=== PATIENT | female | born 1945 | race Caucasian/White ===

== ENCOUNTER 2017-06-16 07:11 | Day surgery (SDC) | payer MEDICARE, MEDICAID ==
[2017-06-16 08:22] VITALS: BP 131/43; TEMP 98.2; BMI 44.3
[2017-06-16] MEDS ORDERED: FLU VACC TS2017-18 (>65YR) 0.5 ML SYRINGE IM ONE (08:30)
--- NOTE | 2017-06-16 10:09 | CT ---
CT CERVICAL MYELOGRAM: Date: 06/16/17 INDICATION: Disc degenerative disease of the cervical spine. TECHNIQUE: Multiple CT images were obtained of the cervical spine following the intrathecal administration of I sovue contrast solution. Please see the separately dictated myelogram for details concerning injecti on technique. FINDINGS: There is postsurgical change of an ACDF spanning C6-C7. There is solid osseous incorporation with fi bular strut graft. The plate and screw construct fixating C6-C7 projects in the expected position. Visualized mastoid air cells are clear. The craniocervical junction demonstrates some mild degenerat gabriela change, but is otherwise without acute abnormality. At C2-C3, there is moderate right and mild left facet joint degenerative change. There is mild left uncovertebral hypertrophy. There is no appreciable central canal or neural foraminal narrowing. At C3-4, there is severe right and moderate left facet joint degenerative change. There is mild unco vertebral hypertrophy. There is no appreciable central canal or neural foraminal narrowing. At C4-5, there is moderate bilateral facet joint degenerative change. There is no appreciable centra l canal narrowing. There is a mild central protrusion causing mild effacement of the ventral subarac hnoid space. At C5-6, there is a broad based disc bulge with uncovertebral hypertrophy and facet joint degenerati ve change causing mild effacement of the ventral subarachnoid space and ventral spinal cord. No neur al foraminal narrowing is evident. At C6-7, there is some broad based osteophyte complex. There is no appreciable osseous central canal or neural foraminal narrowing. At C7-T1, there is no central canal or neural foraminal narrowing. At T1-T2, there is no appreciable central canal or neural foraminal narrowing. At T2-T3, there is no appreciable central canal or neural foraminal narrowing. Lung apices are clear. IMPRESSION: 1. Multilevel spondylosis of the cervical spine with mild central canal narrowing seen at C4-5 and C5-6. At C5-6, there is mild ventral effacement also with the spinal cord. 2. C6-C7 anterior cervical disc fusion with solid incorporation of the fibular strut graft. POS: [facility]
--- NOTE | 2017-06-16 10:14 | CT ---
CT THORACIC SPINE MYELOGRAM: Date: 06/16/17 INDICATION: Disc degenerative disease of the thoracic spine. TECHNIQUE: Multiple CT images were obtained of the thoracic spine after intrathecal administration of Isovue co ntrast solution. Please see the myelogram for details concerning the injection technique. FINDINGS: There are multilevel changes of disc degenerative disease of the thoracic spine. There is anterior f lowing disc osteophytes at T7 through T10. There is a small central protrusion at T6-T7 causing mild ventral effacement of the thoracic spinal cord. There is an additional small central protrusion at T7-T8 with mild effacement of the ventral subarac hnoid space. At T8-T9, there is a right paracentral protrusion mildly effacing the ventral subarachnoid space. A very tiny central protrusion is seen at T4-5. The remaining thoracic spinal levels demonstrate no appreciable central canal or neural foraminal na rrowing. There is an ACDF seen at C6-7 with solid osseous incorporation of the bone graft. Visualized lungs are clear. Visualized retroperitoneum appear within normal limits. There are some s hotty appearing lymph nodes seen within the gastrohepatic region. IMPRESSION: 1. Multilevel spondylosis of the thoracic spine. 2. Prominent central disc protrusion at T6-T7 causing mild effacement of the ventral spinal cord. 3. Small protrusion seen at T4-T5, T7-T8, and T8-T9. POS: [facility]
--- NOTE | 2017-06-16 11:04 | CT ---
CT LUMBAR SPINE MYELOGRAM: Date: 06/16/17 INDICATION: Disc degenerative disease of the lumbar spine. TECHNIQUE: Multiple CT images were obtained of the lumbar spine following the intrathecal administration of an Isovue contrast solution. Please see the separately dictated lumbar myelogram for details concerning the injection technique. FINDINGS: There are five lumbar-type vertebrae. The conus is seen to terminate at approximately L1. Visualized retroperitoneum demonstrates moderate calcification of the abdominal aorta. There is a retroaortic left renal vein. There are shotty appearing lymph nodes seen within the upper abdomen near the gastr ohepatic ligament. There is diffuse osteopenia. There is moderate degenerative change of the left SI joint and mild degenerative change of the right SI joint. There is postsurgical change of a left hemilaminectomy at L5. There is moderate left and mild right facet joint degenerative change at L5-S1. There is a broad based disc bulge. Constellation of findin gs induces mild to moderate bilateral neural foraminal narrowing. At L4-5, there is a broad based disc bulge with ligamentum flavum hypertrophy and mild facet joint d egenerative change inducing mild central canal narrowing with mild to moderate bilateral neural fora andrew narrowing. At L3-4, there is a broad based disc bulge with facet joint degenerative change likely inducing mild bilateral neural foraminal narrowing. At L2-3, there is a mild broad based disc bulge without appreciable central canal or neural foramina l narrowing. At L1-L2, there is no appreciable central canal or neural foraminal narrowing. IMPRESSION: 1. Mild disc degenerative disease of the lumbar spine most pronounced at L3-4 through L4-5 where th ere is bilateral neural foraminal narrowing. There is mild central canal narrowing at L4-5. 2. 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 POS: [facility]
--- NOTE | 2017-06-16 11:24 | RAD ---
MYELOGRAM INVOLVING 2 OR MORE REGIONS: Date: 06/16/17 INDICATION: Disc degenerative disease. TECHNIQUE: Informed consent was obtained. Preprocedure senior safety management consultant images were obtained of the cervical thoracic, and lumbar spine. The patient was placed prone on the fluoroscopy table. A timeout was performed. Site overlying the left L2-L3 interlaminar space was marked. The site was prepped and draped in the usual sterile fashion. Buffered 1% lidocaine was administered to the overlying subcutaneous tissues. Unde r fluoroscopic guidance, a 22 gauge spinal needle was guided down through the left L2-3 interlaminar space and into the thecal sac. With removal of the inner stylette, there was spontaneous return of normal appearing CSF fluid. Following this, 14 mL of Isovue-300M contrast was administered within th e thecal sac. During the fluoroscopic examination, there was visualization of intrathecal nerve root s from the cauda equina verifying intrathecal injection. Following completion of the contrast admini stration into the thecal sac, the inner stylette was replaced the spinal needle was removed. The pat ient was then placed in a Trendelenburg position to allow for migration of contrast into the thoraci c and cervical spinal level. Upon verification of contrast flow up to the cervical spine level, the patient was then placed in neutral positioning. The wound was then cleansed and bandaged. The patien t was then placed on a gurney and transferred to the CT suite for a follow-up CT myelogram of the ce rvical, thoracic, and lumbar spine. Total fluoroscopic time: 1 minute. Total exposure: 426.5 mGy*cm\S\2. FINDINGS: [employer] images demonstrate an ACDF involving C6-7. There is advanced disc degenerative disease at C5-6 . Spinal alignment appears within normal limits. No acute fracture is evident. There is multilevel moderate disc degenerative disease of the thoracic spine with some flowing synde smophytes seen involving the anterior aspect of the mid thoracic spine. No acute fracture is evident . Visualized lungs are clear. Bowel gas pattern is unobstructed. Lumbar spine demonstrates five lumb ar-type vertebra. There is mild disc degenerative and facet osteoarthritic change involving the lowe r lumbar spine. No acute osseous abnormality is evident. IMPRESSION: Successful myelogram. POS: [facility]
[2017-06-16] MEDS ORDERED: Iopamidol-M 300 61% 15 ML VIAL ONE (16:07)
== END 2017-06-16 10:40 | disposition home or self-care (01) ==
LOC: RAD 07:11
PROVIDERS: ATTEND Neurological Surgery
DX: M51.36 Other intervertebral disc degeneration, lumbar region (principal); M50.323 Other cervical disc degeneration at C6-C7 level; M51.24 Other intervertebral disc displacement, thoracic region; Z88.5 Allergy status to narcotic agent; Z88.2 Allergy status to sulfonamides; Z88.0 Allergy status to penicillin; Z88.1 Allergy status to other antibiotic agents; Z79.899 Other long term (current) drug therapy; Z90.49 Acquired absence of other specified parts of digestive tract; Z98.1 Arthrodesis status; Z98.890 Other specified postprocedural states
CPT/HCPCS: 62305; 72126; 72129; 72132